=== PATIENT | male | born 1985 | race Caucasian/White ===

== ENCOUNTER 2018-10-03 03:57 | Emergency (ER) | payer OTHER, BC ==
[2018-10-03] MEDS ORDERED: EPINEPHRINE INJ/PF 1 MG/1 ML AMPULE ONE (04:10)
[2018-10-03] MEDS ORDERED: METHYLPREDNISOLONE INJ 125 MG/2 ML SDV ONE (04:11)
[2018-10-03] MEDS ORDERED: FAMOTIDINE INJ/PF 20 MG/2 ML SDV IV ONE ×2 (04:11→04:13)
[2018-10-03] MEDS ORDERED: DIPHENHYDRAMINE HCL 50 MG/ML VIAL ONE (04:11)
[2018-10-03] MEDS ORDERED: EPINEPHRINE INJ/PF 1 MG/1 ML AMPULE IM ONE (04:12)
[2018-10-03] MEDS ORDERED: METHYLPREDNISOLONE INJ 125 MG/2 ML SDV IV ONE (04:13)
[2018-10-03] MEDS ORDERED: DIPHENHYDRAMINE HCL 50 MG/ML VIAL IV ONE (04:13)
--- NOTE | 2018-10-03 04:24 | ER Document Report ---
ED Allergic Reaction - General Chief Complaint: Allergic Reaction Stated Complaint: POSSIBLE ALLERGIC REACTION Time Seen by Provider: 10/03/18 04:07 Notes: Patient is a 33-year-old male that comes to the emergency department for chief complaint of allergic reaction. He states that he woke up just prior to coming to the emergency department with a itchy rash over his arms, back, chest, he states that he started feeling an itchiness and tightness in his throat, he vomited once, and came to the emergency department. He did eat assorted seafood and shellfish for dinner tonight. He denies history of the same. He denies any diagnosed medical problems or past medical history. TRAVEL OUTSIDE OF THE [place] IN LAST 30 DAYS: No Past Medical History - General Information source: Patient - Social History Smoking Status: Never Smoker Frequency of alcohol use: None Drug Abuse: None Lives with: Family Family History: Reviewed & Not Pertinent Surgical Hx: Negative - Immunizations Immunizations up to date: Yes Hx Diphtheria, Pertussis, Tetanus Vaccination: Yes Review of Systems - Review of Systems Constitutional: No symptoms reported EENT: See HPI Cardiovascular: No symptoms reported Respiratory: No symptoms reported Gastrointestinal: See HPI Genitourinary: No symptoms reported Male Genitourinary: No symptoms reported Musculoskeletal: No symptoms reported Skin: See HPI Hematologic/Lymphatic: No symptoms reported Neurological/Psychological: No symptoms reported Physical Exam - Vital signs Vitals: Temp Pulse Resp BP Pulse Ox 97.5 F 83 18 134/84 H 95 10/03/18 04:01 10/03/18 04:01 10/03/18 04:01 10/03/18 04:01 10/03/18 04:01 - Notes Notes: GENERAL: Alert, interacts well. No acute distress. HEAD: Normocephalic, atraumatic. EYES: Pupils equal, round, and reactive to light. Extraocular movements intact. ENT: Oral mucosa moist, tongue midline. Oropharynx showing some mild soft tissue swelling at the posterior pharynx, some swelling of the uvula as well. Voice is normal sounding. Airway patent. Nares patent, no nasal septal hematoma, TM's intact. NECK: Full range of motion. Supple. Trachea midline. LUNGS: Clear to auscultation bilaterally, no wheezes, rales, or rhonchi. No respiratory distress. HEART: Regular rate and rhythm. No murmur ABDOMEN: Soft, non-tender. Non-distended. Bowel sounds present in all 4 quadrants. GENITOURINARY: Deferred EXTREMITIES: Moves all 4 extremities spontaneously. No edema, normal radial and dorsalis pedis pulses bilaterally. No cyanosis. BACK: no cervical, thoracic, lumbar midline tenderness. No saddle anesthesia, normal distal neurovascular exam. NEUROLOGICAL: Alert and oriented x3. Normal speech. Cranial nerves II through XII grossly intact. PSYCH: Normal affect, normal mood. SKIN: Flushed but no rashes appreciated. Course - Re-evaluation Re-evalutation: Patient is flushed on initial evaluation, however there are no noted hives. His lungs are clear. He does appear to have slight soft tissue swelling at the back of the throat over the posterior pharynx and uvula. He was given epinephrine, Benadryl, Pepcid, Solu-Medrol. He will be closely monitored and reevaluated. 10/03/18 04:38 Patient reevaluated, no significant change but he just received medications. No progression of symptoms. 10/03/18 05:11 Patient does have improvement, there is reduced swelling along the posterior pharynx although he still has some mild uvula swelling. No developed symptoms. He will continue to be monitored. Patient reevaluated twice more. No worsening symptoms. Continues to have improvement, patient denies any symptoms on last evaluation. It is been over 2 hours since medication, patient has been here almost 3 hours. He is requesting to leave. Because patient is only had improvement of symptoms and no worsening symptoms along with observation, patient was discharged with medications, instructions, and I discussed strict return precautions with patient in detail. Patient states understanding and agreement. - Vital Signs Vital signs: Temp Pulse Resp BP Pulse Ox 97.5 F 83 18 116/77 97 10/03/18 04:01 10/03/18 04:01 10/03/18 06:01 10/03/18 06:01 10/03/18 06:01 Discharge - Discharge Clinical Impression: Allergic reaction Qualifiers: Encounter type: initial encounter Qualified Code(s): T78.40XA - Allergy, unspecified, initial encounter Condition: Stable Disposition: HOME, SELF-CARE Additional Instructions: Your evaluation is consistent with an anaphylactic reaction, probably to the shellfish although this is not certain. Recommendation is to take the prednisone as prescribed to completion, take the cetirizine and famotidine for 1 week, follow-up with primary care. Return if you worsen, if you develop any signs of severe allergic reaction such as difficulty breathing, swallowing, swelling of the face, etc. take the epinephrine pen and return immediately to the emergency department. Prescriptions: Cetirizine HCl [All Day Allergy] 10 mg PO DAILY #30 capsule Epinephrine [Epipen 2-[place]] 0.3 mg IM ASDIR PRN #1 packet PRN Reason: Famotidine [Pepcid 20 mg Tablet] 20 mg PO DAILY #12 tablet Prednisone [Deltasone 10 mg Tablet] 10 mg PO ASDIR PRN #21 tablet PRN Reason:
[2018-10-03 06:36] VITALS: BP 116/77
== END 2018-10-03 06:36 | disposition home or self-care (01) ==
LOC: ER 03:57
DX: R21 Rash and other nonspecific skin eruption (principal); T78.40XA Allergy, unspecified, initial encounter; X58.XXXA Exposure to other specified factors, initial encounter
CPT/HCPCS: 99283; 96372; 96374; 96375; J1200; J0171; J2930; S0028